=== PATIENT | male | born 1950 | race Caucasian/White ===

== ENCOUNTER → 2016-11-24 | Outpatient (CLI) | payer MEDICARE ==
[~2016-11-24] MED LIST: ASPIRIN81 MG PO; HYDROCODON-ACE1 EAC9 PO; K-DUR20 ME2 PO; KLONOPIN1 MG PO; LORAZEPAM1 MG PO; MAG-OX 400400 MG PO; METOPROLOL SUCC50 MG PO; OMEPRAZOLE40 M1 PO; PRAVASTATIN SOD40 MG PO
--- NOTE | ~2016-11-24 | CT134 ---
[facility] A Service of [facility] & [facility] RADIOLOGY TEXT RESULTS PATIENT: HIMANSHU MITCHELL LOCATION: [facility] : 50 UNIT #: [id number] AGE: [address]: DENVER PAULA MD SEX: M ORDER DR: [id number] [address] [address] [id number] O MR#: [id number] Acc #: [id number] NAME: HIMANSHU MITCHELL. : 1950 SEX: M STUDY DATE/TIME: 11/24/2016 10:43 UNIT: [facility] ROOM: STUDY DESCRIPTION: CT Guide Attending Physician: Denver Paula M.D. Referring Physician: Denver Paula M.D. Ordering Physician: Denver Paula M.D. Primary Care Physician: Ravi Ham M.D. MEDICAL IMAGING REPORT This report is preliminary unless electronic signature is present EXAM CT-guided bone marrow biopsy INDICATION Non-follicular lymphoma. Patient has a history of retroperitoneal adenopathy and actually underwent lymph node biopsy on November 14, 2016 of a left retroperitoneal lymph node. TECHNIQUE This CT examination was performed with one or more of the following radiation dose reduction techniques: automatic exposure control, adjustment of mA and/or kV according to patient size, and iterative reconstruction. PROCEDURE The risks, benefits, and alternatives to the procedure were explained to the patient, and signed, informed consent was obtained. He was placed prone on the CT scanner gantry. Preliminary CT scan was performed through the region of interest. An appropriate site overlying the patient's left iliac bone was selected. The overlying skin was marked. Patient was prepped and draped in usual sterile fashion. Time-out was performed as per protocol. Skin and subcutaneous tissues were anesthetized with buffered lidocaine and bone marrow biopsy needle was advanced into the left iliac bone. Repeat CT scan confirmed appropriate positioning of the needle which was then advanced into the bone marrow. Bone marrow aspirate was obtained and the bone marrow needle was advanced further into the bone marrow and then removed which yielded an adequate core sample. Manual pressure was applied until hemostasis was obtained. Patient did receive moderate sedation consisting of 150 mcg of Fentanyl and 5 mg of Versed. I supervised the IVR nurse and monitored the patient's vital signs for a total of 20 minutes of pwer-mm-wyua time. [facility] A Service of [facility] RADIOLOGY TEXT RESULTS PATIENT: HIMANSHU MITCHELL LOCATION: [facility] : 50 UNIT #: [id number] AGE: [address]: DENVER PAULA MD SEX: M ORDER DR: Technically successful CT-guided bone marrow biopsy as noted above. CT was used during the procedure and permanent images were saved. Dictated by... Corinne Velasoc M.D. THIS IS AN ELECTRONICALLY VERIFIED REPORT Corinne Velasco M.D. at 11/26/2016 11:19 AM KULDEEP/demarcus TD: 11/26/2016 08:53 JOB #: [id number] MEDICAL IMAGING REPORT Page 1 of 1 COPY
[2016-11-24 09:03] LABS: HEMATOCRIT 43.3 % (38.0-50.0); HEMOGLOBIN 14.1 gm/dL (13.0-16.0); MEAN CELL VOLUME 90.2 FL (83-96); MEAN CORPUSCULAR HEMOGLOBIN 29.4 PG (28-34); MEAN CORPUSCULAR HGB CONC 32.6 g/dL (30-36); MEAN PLATELET VOLUME 9.9 FL (6.5-11.5); RED BLOOD COUNT 4.8 X10e (3.90-5.60); WHITE BLOOD COUNT 9.3 X10e3 (4.0-10.5)
[2016-11-24 09:19] LABS: PARTIAL THROMBOPLASTIN TIME 27.9 SECONDS (23.5-31.3)
== END | disposition home or self-care (01) ==
LOC: CIVR 08:28
PROVIDERS: Internal Medicine Hematology & Oncology
DX: R59.1 Generalized enlarged lymph nodes (principal); C83.80 Other non-follicular lymphoma, unspecified site; D72.810 Lymphocytopenia; R10.9 Unspecified abdominal pain; Z88.0 Allergy status to penicillin; Z88.1 Allergy status to other antibiotic agents; F17.200 Nicotine dependence, unspecified, uncomplicated; J44.9 Chronic obstructive pulmonary disease, unspecified; K21.9 Gastro-esophageal reflux disease without esophagitis; E78.5 Hyperlipidemia, unspecified; Z80.43 Family history of malignant neoplasm of testis; Z80.52 Family history of malignant neoplasm of bladder
CPT/HCPCS: 38221; G0364; 36415; 77012; 85027; 85610; 85730; 88184; 88185; 88237; 88264; 88305; 88311; 88323; 88341; 88342; 99144; 99152; 99153; J2250; J3010

== ENCOUNTER → 2017-02-19 | Outpatient (CLI) | payer MEDICARE ==
--- NOTE | ~2017-02-19 | CT55 ---
[facility] A Service of [facility] & [facility] RADIOLOGY TEXT RESULTS PATIENT: HIMANSHU MITCHELL RAY LOCATION: [facility] : 50 UNIT #: [id number] AGE: [address]: Freida Gee MD SEX: M ORDER DR: [id number] [facility] [address] [place], [place] [address] [id number] O MR#: [id number] Acc #: [id number] NAME: HIMANSHU MITCHELL : 1950 SEX: M STUDY DATE/TIME: 02/19/2017 13:56 UNIT: [facility] ROOM: STUDY DESCRIPTION: CT Chest W Con Attending Physician: Freida Gee M.D. Referring Physician: Freida Gee M.D. Ordering Physician: Freida Gee M.D. Primary Care Physician: Ravi Ham M.D. MEDICAL IMAGING REPORT This report is preliminary unless electronic signature is present EXAM CT chest with contrast. Date: 02/19/2017. HISTORY 66-year-old male with follicular lymphoma diagnosed November 2016. Mid abdominal pain for 3 years getting worse. Chest tightness for 2 months. COMPARISON AP portable chest 12/25/2016. PET CT 12/17/2016. PROCEDURE 5 mL axial images through the chest after intravenous contrast administration. Sagittal and coronal reformed images were obtained. This CT exam was performed with one or more of the following radiation dose reduction techniques: automatic exposure control, adjustment of mA and/or kV according to patient size, and iterative reconstruction. FINDINGS No suspicious pulmonary nodules or lung consolidations are seen. Benign calcified granulomas seen in the superior segment of the left lower lobe. Mild centrilobular emphysematous changes are present predominantly in the upper lobes. No pathologically enlarged mediastinal, hilar, or axillary adenopathy is seen. Previously described left neck base lymph node posterior to the thyroid gland has significantly diminished in size. On today's examination it measures 1.1 x 0.7 cm. On 10/30/2016 CT chest to it measured nearly 3.0 x 2.1 cm. No new adenopathy is seen. No pericardial effusion or pleural effusion. No pneumothorax. Mild coronary calcifications. No acute or suspicious osseous abnormalities are identified. [facility]. [facility] A Service of [facility] RADIOLOGY TEXT RESULTS PATIENT: HIMANSHU MITCHELL [facility] UNIT #: [id number] AGE: [address]: Freida Gee MD SEX: M ORDER DR: IMPRESSION 1. Left neck base lymph node described on 10/30/2016 has significantly diminished in size. No new adenopathy is seen. 2. There is no evidence of metastatic disease elsewhere within the chest. 3. Mild centrilobular emphysema. 4. CT neck and CT abdomen report on this same date have been dictated separately. Dictated by... Suellen Muñoz M.D. THIS IS AN ELECTRONICALLY VERIFIED REPORT Suellen Muñoz M.D. at 02/21/2017 1:11 PM MYRANDA/valentina TD: 02/20/2017 13:28 JOB #: [id number] MEDICAL IMAGING REPORT Page 1 of 1 COPY
--- NOTE | ~2017-02-19 | CT2 ---
[facility] A Service of [facility] & [facility] RADIOLOGY TEXT RESULTS PATIENT: HIMANSHU MITCHELL RAY LOCATION: [facility] : 50 UNIT #: [id number] AGE: [address]: Freida Gee MD SEX: M ORDER DR: [id number] [facility] [address] [place], [place] [address] [id number] O MR#: [id number] Acc #: [id number] NAME: HIMANSHU MITCHELL : 1950 SEX: M STUDY DATE/TIME: 02/19/2017 13:57 UNIT: [facility] ROOM: STUDY DESCRIPTION: CT Abd and Pelv W Cont Attending Physician: Freida Gee M.D. Referring Physician: Freida Gee M.D. Ordering Physician: Freida Gee M.D. Primary Care Physician: Ravi Ham M.D. MEDICAL IMAGING REPORT This report is preliminary unless electronic signature is present EXAM CT abdomen and pelvis with contrast DATE 02/19/2017 HISTORY Lymphoma diagnosed November 2016 with last chemotherapy treatment 02/04/2017. Observation for metastatic disease. Restaging. Patient states mid abdominal pain for 3 years, getting worse. Chest tightness for [address] abdomen and pelvis with contrast 10/28/2016. PET/CT 12/17/2016. CT-guided biopsy of left periaortic lymph node, 11/18/2016. PROCEDURE 5 mm axial images from the lung bases through the lesser trochanters after intravenous contrast administration. Enteric contrast was not administered. This CT exam was performed with one or more of the following radiation dose reduction techniques: Automatic exposure control, adjustment of mA and/or kV according to patient size, and iterative reconstruction. FINDINGS ABDOMEN FINDINGS: There is persistent diffuse marked wall thickening throughout the stomach. What appears to be a biopsy clip is seen along the posterior mid gastric body wall. Retroperitoneal adenopathy has improved. For example, a right side aortocaval node currently measures only 8 x 7 mm compared to 1.7 x 1.5 cm on the previous 12/17/2016 PET/CT. A left periaortic lymph node currently measuring 1.2 x 0.7 cm, previously measuring 1.8 x 1.4 cm on the 10/28/2016 study. Another left posterior periaortic node currently STS. [facility] A Service of [facility] & [facility] RADIOLOGY TEXT RESULTS PATIENT: HIMANSHU MITCHELL [facility] UNIT #: [id number] AGE: [address]: Freida Gee MD SEX: M ORDER DR: measuring only 6 x 5 mm previously measured nearly 1.7 x 1.3 cm on 10/28/2016. No new adenopathy is seen. There is no ascites. The liver, gallbladder, spleen, pancreas, adrenals and right kidney are normal. Tiny left renal cortical cyst. Moderate atherosclerotic plaquing within the infrarenal abdominal aorta without malcolm aneurysm. No evidence of bowel obstruction. PELVIS FINDINGS: Left external iliac chain node is no longer pathologically enlarged. This lymph node now measures 7 x 5 mm and previously measured 1.1 x 1.0 cm on 10/28/2016. No pathologic adenopathy is seen in the pelvis. There is no ascites. Advanced diverticular changes are seen within the sigmoid colon without evidence of acute diverticulitis. Urinary bladder, prostate, and rectum are normal. No pelvic free fluid. Dense calcific atherosclerosis in the bilateral common iliac chains. No suspicious osseous lesions are identified. IMPRESSION 1. Persistent marked abnormal gastric wall thickening, worrisome for residual gastric malignancy. A biopsy clip is seen along the posterior mid gastric body wall. 2. Marked improvement in retroperitoneal adenopathy in the abdomen and pelvis consistent with interval response to therapy compared to both the previous PET/CT from 12/17/[address] abdomen and pelvis from 10/28/2016. Mildly prominent left periaortic lymph nodes do remain. 3. Additional CT findings include: Left renal cyst, aortobiiliac calcific atherosclerosis, advanced sigmoid diverticulosis. 4. CT chest and neck performed on the same date and then dictated separately. Dictated by... Suellen Muñoz M.D. THIS IS AN ELECTRONICALLY VERIFIED REPORT Suellen Muñoz M.D. at 02/21/2017 1:11 PM MYRANDA/cassie TD: 02/20/2017 13:43 JOB #: [id number] MEDICAL IMAGING REPORT Page 1 of 1 COPY
--- NOTE | ~2017-02-19 | CT114 ---
[facility] A Service of [facility] & [facility] RADIOLOGY TEXT RESULTS PATIENT: HIMANSHU MITCHELL RAY LOCATION: [facility] : 50 UNIT #: [id number] AGE: [address]: Freida Gee MD SEX: M ORDER DR: [id number] [facility] [address] [place], [place] [address] [id number] O MR#: [id number] Acc #: [id number] NAME: HIMANSHU MITCHELL : 1950 SEX: M STUDY DATE/TIME: 02/19/2017 15:39 UNIT: [facility] ROOM: STUDY DESCRIPTION: CT Soft Tissue Neck W Cont Attending Physician: Freida Gee M.D. Referring Physician: Freida Gee M.D. Ordering Physician: Freida Gee M.D. Primary Care Physician: Ravi Ham M.D. MEDICAL IMAGING REPORT This report is preliminary unless electronic signature is present EXAM CT of the neck soft tissue with contrast dated 02/19/2017. COMPARISON PET/CT dated 12/17/2016. No dedicated prior CT neck studies are available. HISTORY Diagnosed with follicular lymphoma in November 2016. Neck discomfort today. Mid back pain for 3 years and it is getting worse. Chest tightness for [address] exam was performed with one or more of the following radiation dose reduction techniques: automatic control, adjustment of mA and/or kV according to patient size, and iterative reconstruction. FINDINGS CT neck soft tissue was obtained with IV contrast in the axial plane followed by sagittal and coronal reformats. No enlarged lymph nodes are noted within the various levels of the neck. No acute infection or inflammatory change, abscess or solid mass. Degenerative changes are noted at multiple levels of the cervical spine and facet joints causing varying degrees of canal stenosis and neural foraminal narrowing from the level of C4-5 to C6-7. Pharyngeal mucosal space is patulous without any discrete mass. Epiglottis are unremarkable. Thyroid gland, submandibular glands, parotid glands are within normal limits. There is a large amount of air in the buccal space, incidental finding. Mild atherosclerotic plaques are noted in the bilateral common carotid arteries and left ICA bulb without any severe measurable stenosis of the left ICA per NASCET criteria. Retropharyngeal space, parapharyngeal space, food service specialist space, submental space and previsceral space are unremarkable. Emphysematous lung changes STS. [facility] A Service of [facility] & [facility] RADIOLOGY TEXT RESULTS PATIENT: HIMANSHU MITCHELL LOCATION: [facility] : 50 UNIT #: [id number] AGE: [address]: Freida Gee MD SEX: M ORDER DR: are present. Imaged brain does not demonstrate any significant abnormality. Nasal septum is deviated to the left. There is small nodular mucosal thickening in the mid to inferior aspect of the right maxillary antrum suggestive of polyp or mucous retention cyst. Imaged orbits and the ocular structures do not demonstrate any significant abnormality. IMPRESSION 1. No lymphadenopathy. 2. Degenerative changes are noted in the cervical spine with varying degrees of canal stenosis and neural foraminal narrowing. Dictated by... Tala Pacheco M.D. THIS IS AN ELECTRONICALLY VERIFIED REPORT Tala Pacheco M.D. at 02/24/2017 2:47 PM CPR/rnr TD: 02/21/2017 05:56 JOB #: [id number] MEDICAL IMAGING REPORT Page 1 of 1 COPY
[2017-02-19 15:41] LABS: POC - CREATININE 1.3 mg/dL (0.64-1.27)
== END | disposition home or self-care (01) ==
LOC: CCAT 13:35
PROVIDERS: Internal Medicine Hematology
DX: C83.80 Other non-follicular lymphoma, unspecified site (principal); R59.1 Generalized enlarged lymph nodes; J43.2 Centrilobular emphysema; R93.5 Abnormal findings on diagnostic imaging of other abdominal regions, including retroperitoneum; R59.0 Localized enlarged lymph nodes; N28.1 Cyst of kidney, acquired; I70.0 Atherosclerosis of aorta; K57.30 Diverticulosis of large intestine without perforation or abscess without bleeding; M47.892 Other spondylosis, cervical region; M99.81 Other biomechanical lesions of cervical region; M48.02 Spinal stenosis, cervical region
CPT/HCPCS: 70491; 71260; 74177; 82565; Q9967